=== PATIENT | male | born 1980 | race African-American/Black ===

== ENCOUNTER 2018-09-26 23:33 | Emergency (ER) | payer SELFPAY ==
[2018-09-26] MEDS ORDERED: Ibuprofen 800 MG TAB ONE (23:46)
--- NOTE | 2018-09-27 06:54 | RAD ---
LEFT HAND THREE VIEWS: HISTORY: Injury after punching a wall with pain and swelling. FINDINGS: There is a comminuted fracture involving the distal 5th metacarpal, with volar angulation. IMPRESSION: Comminuted, volarly angulated, distal 5th metacarpal fracture with foreshortening and resultant defor mity. POS: PAO
== END 2018-09-27 00:25 | disposition home or self-care (01) ==
LOC: SCSER 23:33
DX: S62.337A Displaced fracture of neck of fifth metacarpal bone, left hand, initial encounter for closed fracture (principal); F41.9 Anxiety disorder, unspecified; F32.9 Major depressive disorder, single episode, unspecified; F17.210 Nicotine dependence, cigarettes, uncomplicated; W22.8XXA Striking against or struck by other objects, initial encounter
CPT/HCPCS: 29125